=== PATIENT | female | born 1960 | race Caucasian/White ===

== ENCOUNTER 2016-10-01 13:16 | Emergency (ER) | payer MEDICARE, MEDICAID ==
[~2016-10-01 13:16] MED LIST: ACETAMINOPHEN500 MG PO; ACIDOPHILUS1 EACH PO; BETAMETHASONE D50 G1 TP; BUSPIRONE HCL15 MG PO; CALCIUM 600 +1 EAC4 PO; ESTRADIOL1 MG PO; HYDROCODON-ACE1 EAC4 PO; HYDROCORTISONE TP; IMITREX DPS100 MG PO; KEFLEX500 MG PO; NYSTATIN CREAM15 GM TP; PROPRANOLOL HCL80 M1 PO; ULTRAM DPS50 MG PO; [UNRECOGNIZED DRUG - OTHER] PO
--- NOTE | 2016-10-19 15:51 | ER ---
ADMIT: 10/01/2016 RM/LOC: ER [facility] MR#: [id number] [id number] [place], [place] [id number] [employer] [address] [place] [address] Emergency Room Report SEX: F AGE: 56 : 1960 DATE: 10/01/2016 Ms Odom is a 56-year-old, presents to emergency room with a headache she has had since at this morning. She said she threw up just this morning when she woke up. She then took hydro at 11:30, sumatriptan. She has had some nausea, vomiting, neck discomfort, she states, but she is able to have good range of motion and have no meningismus whatsoever. She points to the forehead, the top of her head, and posterior scalp. She takes sumatriptan, hydro, OxyContin, estrogen, muscle relaxant. So for the treatment for this headache, she took 1 OxyContin, 1 hydrocodone, Flexeril, and sumatriptan and ended up in the emergency room still unable to control her headache. PAST MEDICAL HISTORY: Positive for chronic headaches including migraine and chronic back. She has had back surgery. ALLERGIES: TO SULFA AND PARLODEL. PHYSICAL EXAMINATION: VITAL SIGNS: Blood pressure 147/83, with a heart rate of 104, respirations 16, and temp 98.3. GENERAL: Moderately anxious with photophobia. NECK: Supple. RESPIRATIONS: No distress. CVS: Regular in rate and rhythm. ABDOMEN: Nontender. SKIN: Good color, turgor, and intact. EXTREMITIES: Non edematous. NEURO: Cranial nerves II through XII intact. Mood and affect irritable but alert x4. After her medication of Toradol, Reglan, and Benadryl her blood pressure is 127/82, she was slightly tachycardic when she came into the emergency room, pulse 94, much improved than before. She will be released home. I did talk to her concerning her OxyContin, seems like she may at this point, have had some rebound headache due to her use of narcotics from the beginning of her migraine headache therapy. Encouraged to hydrate, follow up with Dr. Lewis. Take her medications according to her prescription. Avoid narcotics for migraine headaches. She said the only reason she took them is because she had them at home and she has had issues with her back thinking that if they help with the back, it would help her with her headache. CLINICAL IMPRESSION: Migraine headache, acute. JORDEN Lee / Bulmaro Saul MD / modl JOB #: [id number] CC: Bulmaro Saul MD, Attending Physician ADMIT: 10/01/2016 RM/LOC: [facility] MR#: [id number] [address] [place] [id number] [place] [address] Emergency Room Report SEX: F AGE: 56 : 1960 Selena Lewis MD, Family Physician
== END 2016-10-01 15:52 | disposition home or self-care (01) ==
LOC: ER 13:16
DX: G43.909 Migraine, unspecified, not intractable, without status migrainosus (principal); Z98.890 Other specified postprocedural states; Z88.2 Allergy status to sulfonamides; Z88.8 Allergy status to other drugs, medicaments and biological substances; Z79.899 Other long term (current) drug therapy